=== PATIENT | female | born 1995 | race Caucasian/White ===

== ENCOUNTER 2021-05-11 17:57 | Inpatient (IN) | payer MEDICAID ==
[~2021-05-11] VITALS: Ht 165.1 cm; Wt 74.2 kg
[2021-05-11] MEDS ORDERED: PERTUSS(ACELL),DIPH,TET VAC/PF 0.5 ML SYRINGE IM. ONE (18:45)
[2021-05-11] MEDS ORDERED: IBUPROFEN 600 MG TABLET PO ONE (18:45)
[2021-05-11] MEDS ORDERED: LORazepam 2 MG/ML VIAL IM ONE (18:45)
[2021-05-11] MEDS ORDERED: ACETAMINOPHEN 500 MG TABLET PO ONE (18:45)
[2021-05-11 18:54] LABS: BASOPHILS % (AUTO) 0.8 % (0.0-2.0); EOSINOPHILS % (AUTO) 1.9 % (1.0-6.0); HEMATOCRIT 36.1 % (36-46); HEMOGLOBIN 11.8 g/dL (12.0-16.0); LYMPHOCYTES # (AUTO) 2.4 K/uL (1.0-4.8); LYMPHOCYTES % (AUTO) 27.2 % (22.0-44.0); MEAN CORPUSCULAR HEMOGLOBIN 27.8 pg (26.0-34.0); MEAN CORPUSCULAR HGB CONC 32.6 G/dL (31.0-37.0); MEAN CORPUSCULAR VOLUME 85 fL (80-100); MONOCYTES # (AUTO) 0.5 K/uL (0.1-1.0); NEUTROPHILS # (AUTO) 5.6 K/uL (1.8-7.7); NEUTROPHILS % (AUTO) 64.1 % (40.0-70.0); PLATELET COUNT (AUTO) 299 K/uL (150-450); RED BLOOD CELL COUNT(AUTO) 4.23 MIL/uL (4.00-5.20); RED CELL DISTRIBUTION WIDTH 15.2 % (11.5-14.5)
[2021-05-11 19:04] LABS: ANION GAP 11 mmol/L (8-16); CALCIUM, TOTAL 8.7 mg/dL (8.8-10.5); CARBON DIOXIDE 25 mmol/L (22-29); CHLORIDE 106 mmol/L (98-107); CREATININE 0.77 mg/dL (0.60-1.30); GLOMERULAR FILTR. RATE CALC > 60 mL/min (>60); GLUCOSE,RANDOM 89 mg/dL (70-110); POTASSIUM 3.7 mmol/L (3.5-5.1); SODIUM SERUM 142 mmol/L (136-145); UREA NITROGEN, BLOOD 9 mg/dL (7-18)
[2021-05-11 19:15] LABS: ALANINE AMINOTRANSFERASE 22 U/L (12-78); ALBUMIN 3.7 g/dL (3.4-5.0); ALKALINE PHOSPHATASE 75 U/L (46-116); ASPARTATE AMINOTRANSFERASE 17 U/L (15-37); BILIRUBIN,TOTAL 0.4 mg/dL (0.1-1.0); HCG,QUANTITATIVE < 1 mIU/mL (0-6); TOTAL PROTEIN, SERUM 6.6 g/dL (6.4-8.2)
[2021-05-11 19:17] LABS: ACETAMINOPHEN < 2 mcg/mL (10-30)
[2021-05-11 19:27] LABS: SALICYLATE < 2.8 mg/dL (2.8-20.0)
[2021-05-11] MEDS ORDERED: ZOLPIDEM TARTRATE 10 MG TABLET PO PRN (19:30)
[2021-05-11 19:41] LABS: COVID AG,FIA SOURCE NASOPHARYNGEAL
[2021-05-12 05:17] LABS: CHOL/HDL RATIO 2.5 (3.9-5.7); CHOLESTEROL 140 mg/dL (131-200); HDL CHOLESTEROL 57 mg/dL (40-60); LDL CHOL (CALC.) 66 mg/dL (0-130); TRIGLYCERIDES 87 mg/dL (15-150)
[2021-05-12 08:26] VITALS: BP 117/69
[2021-05-12] MEDS: FLUoxetine HCL 20 MG CAPSULE PO SCH (09:38)
[2021-05-12] MEDS ORDERED: DOCUSATE SODIUM 100 MG CAPSULE PO PRN (14:00)
[2021-05-12] MEDS ORDERED: MAGNESIUM HYDROXIDE SUSPENSION 30 ML UDCUP PO PRN (14:00)
[2021-05-12] MEDS ORDERED: NICOTINE 14 MG/24 HOUR PATCH TD PRN (14:00)
[2021-05-12] MEDS ORDERED: MAG HYDROX/AL HYDROX/SIMETH ES 30 ML SUSPENSION UDCUP PO PRN (14:00)
[2021-05-12] MEDS ORDERED: GuaiFENesin/D-METHORPHAN [SUGAR-FREE] 200-20MG/10 ML SYRUP UDCUP PO PRN (14:00)
[2021-05-12] MEDS ORDERED: ACETAMINOPHEN 325 MG TABLET PO PRN (14:00)
[2021-05-12] MEDS ORDERED: ALBUTEROL SULFATE HFA 90 MCG/PUFF 8 GM INHALER IH PRN (14:00)
[2021-05-12] MEDS ORDERED: PETROLATUM,WHITE 28 GM JELLY TP PRN (14:00)
[2021-05-12] MEDS ORDERED: CloNIDine HCL 0.1 MG TABLET PO PRN (14:00)
[2021-05-12] MEDS ORDERED: ONDANSETRON HCL 4 MG TABLET PO PRN (14:00)
[2021-05-12] MEDS ORDERED: LOPERAMIDE HCL 2 MG CAPSULE PO PRN (14:00)
[2021-05-12 16:12] VITALS: BP 109/62
[2021-05-12] MEDS: HALOPERIDOL 5 MG TABLET PO PRN (18:20)
[2021-05-12] MEDS: LORazepam 2 MG TABLET PO PRN (18:20)
[2021-05-13] MEDS: FLUoxetine HCL 20 MG CAPSULE PO SCH (09:15)
[2021-05-13 10:45] VITALS: BP 115/67
[2021-05-13] MEDS: HALOPERIDOL 5 MG TABLET PO PRN (12:30)
[2021-05-13] MEDS: LORazepam 2 MG TABLET PO PRN ×2 (12:30→17:37)
[2021-05-13] MEDS ORDERED: INFLUENZA VIRUS VACCINE QVS 2021-22 (6MO+)/PF 60 MCG/0.5 ML SYRINGE IM. ONE (13:15)
[2021-05-13 16:30] VITALS: BP 119/77
[2021-05-14 09:51] VITALS: BP 96/64
[2021-05-14] MEDS: HALOPERIDOL 5 MG TABLET PO PRN (10:02)
[2021-05-14] MEDS: FLUoxetine HCL 20 MG CAPSULE PO SCH (10:02)
[2021-05-14] MEDS: LORazepam 2 MG TABLET PO PRN (10:02)
[2021-05-14 17:46] VITALS: BP 118/70
[2021-05-14 18:13] VITALS: BP 115/77
[2021-05-14] MEDS: IBUPROFEN 400 MG TABLET PO PRN (18:13)
[2021-05-15 04:48] VITALS: BP 110/80
[2021-05-15] MEDS: LORazepam 2 MG TABLET PO PRN ×2 (04:58→12:41)
[2021-05-15] MEDS: FLUoxetine HCL 20 MG CAPSULE PO SCH (07:55)
[2021-05-15 10:10] VITALS: BP 103/69
[2021-05-15] MEDS: HALOPERIDOL 5 MG TABLET PO PRN (12:41)
[2021-05-15 16:22] VITALS: BP 106/53
[2021-05-15 17:19] VITALS: BP 109/60
[2021-05-15] MEDS: IBUPROFEN 400 MG TABLET PO PRN (17:19)
[2021-05-16 04:27] VITALS: BP 101/63
[2021-05-16] MEDS: LORazepam 2 MG TABLET PO PRN ×3 (04:28→17:54)
[2021-05-16] MEDS: FLUoxetine HCL 20 MG CAPSULE PO SCH (08:12)
[2021-05-16 08:57] VITALS: BP 100/52
[2021-05-16 16:08] VITALS: BP 111/59
[2021-05-16 17:54] VITALS: BP 122/63
[2021-05-16] MEDS: IBUPROFEN 400 MG TABLET PO PRN (17:54)
[2021-05-17 03:40] VITALS: BP 111/71
[2021-05-17] MEDS: LORazepam 2 MG TABLET PO PRN ×2 (03:47→08:01)
[2021-05-17] MEDS: HALOPERIDOL 5 MG TABLET PO PRN (04:22)
[2021-05-17] MEDS: FLUoxetine HCL 20 MG CAPSULE PO SCH (08:01)
[2021-05-17 08:43] LABS: COVID AG,FIA SOURCE NASAL SWAB
[2021-05-17 08:46] VITALS: BP 110/64
[2021-05-17] MEDS ORDERED: FLUO20CA36 PO (10:33)
== END 2021-05-17 12:00 | disposition home or self-care (01) | DRG 751 ==
LOC: EMS 17:57 → 3EI 22:14
PROVIDERS: ADMIT Psychiatry & Neurology Child & Adolescent Psychiatry; ATTEND Psychiatry & Neurology Child & Adolescent Psychiatry
PROC: 3E0234Z Introduction of Serum, Toxoid and Vaccine into Muscle, Percutaneous Approach (ICD-10-PCS; principal; 2021-05-11)
DX: F33.3 Major depressive disorder, recurrent, severe with psychotic symptoms (principal); R45.851 Suicidal ideations; D64.9 Anemia, unspecified; F14.90 Cocaine use, unspecified, uncomplicated; S51.812A Laceration without foreign body of left forearm, initial encounter; F15.90 Other stimulant use, unspecified, uncomplicated; F41.9 Anxiety disorder, unspecified; R03.0 Elevated blood-pressure reading, without diagnosis of hypertension; R10.13 Epigastric pain; Z20.822 Contact with and (suspected) exposure to COVID-19; Z56.0 Unemployment, unspecified; X83.8XXA Intentional self-harm by other specified means, initial encounter; Y93.89 Activity, other specified; Y92.89 Other specified places as the place of occurrence of the external cause; Y99.8 Other external cause status; Z23 Encounter for immunization
CPT/HCPCS: 80053; 80061; 84702; 85025; 90715; 99285; G0480; G0481; J2060